=== PATIENT | female | born 1980 | race African-American/Black ===

== ENCOUNTER 2019-03-30 04:09 | Emergency (ER) | payer SELFPAY ==
[~2019-03-30] VITALS: Ht 170.2 cm; Wt 77.1 kg
--- NOTE | 2019-03-30 04:15 | NUR ---
Note undone in EDM - 03/30/19 at 0442 by ОЛЕГ TO BED 3 BIB PARAMEDICS C/O TONIC CLONIC SEIZURE X5 MIN PER PT FAMILY REPORT. RECEIVE PT AAOX4 NO ACUTE DISTRESS NOTED, RESP EVEN AND UNLABORED. PUPILS PERRLA, PT ABLE TO MOVE ALL EXTREMITIES WELL WITH BILATERAL EQUAL OB/GYN PHYSICIAN. NO OBVIOUS HEAD TRAUM NOTED. NOTED ORAL TRAUM, NO BOWEL OR BLADDER INCONTINENCE NOTED. PLACE PLACE PT ON CARDIAC MONITORING, CONTINUOUS POX. ER MD AT BEDSIDE TO EVAL PT WITH ORDERS RECEOVED. WILL CARRY OUT ORDERS. SL 20G TO LAC, BLOO DRAWN AND SENT TO LAB.
--- NOTE | 2019-03-30 04:15 | NUR ---
TO BED 3 [facility] PARAMEDICS C/O TONIC CLONIC SEIZURE X5 MIN PER PT FAMILY REPORT. RECEIVE PT AAOX4 NO ACUTE DISTRESS NOTED, RESP EVEN AND UNLABORED. 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 NO OBVIOUS HEAD TRAUM NOTED. NOTED ORAL TRAUM, NO BOWEL INCONTINENCE, (+) BLADDER INCONTINENCE NOTED. PLACE PLACE PT ON CARDIAC MONITORING, CONTINUOUS POX. ER MD AT BEDSIDE TO EVAL PT WITH ORDERS RECEOVED. WILL CARRY OUT ORDERS. SL 20G TO LAC, BLOO DRAWN AND SENT TO LAB.
[2019-03-30] MEDS ORDERED: ONDANSETRON HCL/PF 4 MG/2 ML VIAL ONE (04:20)
--- NOTE | 2019-03-30 04:29 | NUR ---
Otto dunaway in ED - 03/30/19 at 0437 by ОЛЕГ PT MEDICATED BY RN PER [place] NINO.
--- NOTE | 2019-03-30 04:29 | NUR ---
PT MEDICATED BY RN PER ER MD ORDER.
[2019-03-30 04:30] LABS: BASOPHILS # (AUTO) 0.1 /CMM (0.0-0.2); BASOPHILS % (AUTO) 0.8 % (0.0-2.0); HEMATOCRIT 36 % (33-45); HEMOGLOBIN 11.7 g/dL (11.5-14.8); LYMPHOCYTES # (AUTO) 2.6 /CMM (0.8-4.8); MEAN CORPUSCULAR HGB CONC 33 g/dl (31.0-36.0); MEAN CORPUSCULAR VOLUME 86 fL (82-100); MONOCYTES # (AUTO) 0.8 /CMM (0.1-1.30); MONOCYTES % (AUTO) 8.8 % (2.0-12.0); NEUTROPHILS # (AUTO) 5.1 /CMM (1.8-8.9); NEUTROPHILS % (AUTO) 58.4 % (43.0-81.0); PLATELET COUNT (AUTO) 363 /CMM (150-450); RED BLOOD CELL COUNT(AUTO) 4.16 MIL/uL (4.0-5.2); WHITE BLOOD COUNT (AUTO) 8.8 K/uL (4.3-11.0)
[2019-03-30] MEDS ORDERED: ONDANSETRON HCL/PF 4 MG/2 ML VIAL IVP ONE (04:30)
--- NOTE | 2019-03-30 04:34 | NUR ---
Note undone in EDM - 03/30/19 at 0437 by ОЛЕГ TO BED 3 BIB PARAMEDICS C/O TONIC CLONIC SEIZURE X5 MIN PER PT FAMILY REPORT. RECEIVE PT AAOX4 NO ACUTE DISTRESS NOTED, RESP EVEN AND UNLABORED. 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 NO OBVIOUS HEAD TRAUM NOTED. NOTED ORAL TRAUM, NO BOWEL OR BLADDER INCONTINENCE NOTED. PLACE PLACE PT ON CARDIAC MONITORING, CONTINUOUS POX. ER MD AT BEDSIDE TO EVAL PT WITH ORDERS RECEOVED. WILL CARRY OUT ORDERS. SL 20G TO LAC, BLOO DRAWN AND SENT TO LAB.
[2019-03-30 04:39] LABS: CALCIUM, SERUM 8.8 mg/dL (8.5-10.1); CARBON DIOXIDE 21 mmol/L (21-32); CHLORIDE 105 mmol/L (98-107); GLUCOSE 115 mg/dL (74-106); POTASSIUM 4.1 mmol/L (3.5-5.1); SODIUM SERUM 138 mmol/L (136-145); UREA NITROGEN, BLOOD 14 mg/dL (7-18)
--- NOTE | 2019-03-30 04:43 | NUR ---
PT DAUGHTER AT BEDSIDE.
--- NOTE | 2019-03-30 04:44 | NUR ---
PT TRASNPORTED TO RADIOLOGY FOR CT HEAD.
[2019-03-30 04:45] LABS: ALANINE AMINOTRANSFERASE 26 U/L (12-78); ALBUMIN 3.4 g/dL (3.4-5.0); ALCOHOL, BLOOD < 3 mg/dL (0-0); ALKALINE PHOSPHATASE 73 U/L (46-116); ASPARTATE AMINOTRANSFERASE 17 U/L (15-37); BILIRUBIN,TOTAL 0.2 mg/dL (0.2-1.0); TOTAL PROTEIN, SERUM 6.8 g/dL (6.4-8.2)
--- NOTE | 2019-03-30 04:55 | NUR ---
PT BACK FROM RADIOLOGY. PENDING CT HEAD RESULT.
--- NOTE | 2019-03-30 06:07 | NUR ---
IV removed. Catheter intact and site benign. Pressure and 4x4 applied to site. No bleeding noted. Patient does not wish to proceed with medical care recommended by Dr. Whaley). Patient given information related to possible complications, up to and including , which could occur as a result of leaving the hospital at this time. Patient verbalizes understanding of risks involved due to leaving against medical advice. Patient has signed AMA form. pt aaox4 no acute distress noted, resp even and unlabored. pt daughter at bedside. advice pt not to drive or operate any machinery due to seizure
[2019-03-30 06:08] VITALS: BP 123/63
== END 2019-03-30 06:11 | disposition home or self-care (01) ==
LOC: ER 04:12
DX: G40.909 Epilepsy, unspecified, not intractable, without status epilepticus (principal)
CPT/HCPCS: 36415; 70450; 71045; 80048; 80076; 80307; 85025; 85730; 93005; 96374; 99284; J2405; G0480